=== PATIENT | female | born 1970 | race Hispanic/Latino ===

== ENCOUNTER 2017-12-05 11:13 | Emergency (ER) | payer SELFPAY ==
[2017-12-05 12:45] LABS: RAPID GROUP A STREP NEGATIVE (NEGATIVE)
== END 2017-12-05 13:29 | disposition home or self-care (01) ==
LOC: EDH 11:13
DX: J11.1 Influenza due to unidentified influenza virus with other respiratory manifestations (principal)
CPT/HCPCS: 87804; 87880

== ENCOUNTER 2023-03-05 19:37 | Emergency (ER) | payer OTHER ==
[~2023-03-05] VITALS: Ht 165.1 cm; Wt 116.1 kg
[2023-03-06] MEDS ORDERED: CYCL-309 PO (00:38)
[2023-03-06] MEDS ORDERED: IBUP-1493 PO (00:38)
[2023-03-06 00:49] VITALS: BP 135/72
[2023-03-06] MEDS ORDERED: KETOROLAC 60 MG VIAL (30MG/ML) IM ONE (01:00)
== END 2023-03-06 01:06 | disposition home or self-care (01) ==
LOC: EDH 19:37
DX: M54.50 Low back pain, unspecified (principal); Z90.49 Acquired absence of other specified parts of digestive tract; Z98.890 Other specified postprocedural states
CPT/HCPCS: 99283; 96372; J1885